=== PATIENT | female | born 1990 | race Two or more races ===

== ENCOUNTER 2025-05-07 10:30 | Inpatient (IN) | payer OTHER ==
[~2025-05-07] VITALS: Ht 162.6 cm; Wt 71.7 kg
[2025-05-11] VITALS (8 sets, daily range): BP systolic 97–119; BP diastolic 57–78
[2025-05-11] MEDS ORDERED: MORPHINE SULFATE 4 MG/ML VIAL IV PRN (10:00)
[2025-05-11] MEDS ORDERED: RINGERS SOLUTION,LACTATED 1,000 ML IV SCH (10:00)
[2025-05-11 10:01] LABS: BASO % 0.1 % (0.1-1.2); EOS # 0.04 (0.04-0.54); EOS % 0.4 % (0.7-7.0); LYMPH # 1.34 (1.18-3.74); LYMPH % 13.0 % (19.3-53.1); MEAN PLATELET VOLUME 9.70 fl (9.4-12.4); MONO # 0.68 (0.24-0.82); MONO % 6.6 % (4.7-12.5); NEUT # 8.23 (1.56-6.13); NEUT % 79.6 % (34.0-71.1); RED CELL DISTRIBUTION WIDTH 14.4 % (11.6-14.4)
[2025-05-11] MEDS ORDERED: PRENATAL TABLE1 EAC1 (10:09)
[2025-05-11] MEDS ORDERED: VANCOMYCIN HCL 1,000 MG VIAL IV NR (10:15)
[2025-05-11 10:38] LABS: INR < 0.93
[2025-05-11 10:54] LABS: ALT/SGPT 17.0 U/L (12-78); AST/SGOT 19.0 U/L (15-37); BILIRUBIN TOTAL 0.32 mg/dL (0.3-1.2); BUN CREA RATIO 24.0 (7.0-25.0); CREATININE SERUM 0.42 mg/dL (0.55-1.02); GFR 173.76; GLOBULINA 3.4 G/DL (2.4-3.5); GLUCOSE FASTING 68.0 mg/dL (65-100); OSMOLALITY SERUM 279.0 MOSM/KG (275-295)
[2025-05-11] MEDS ORDERED: OXYTOCIN 20 UNITS/500ML RL PIGGYBAG IV ONE (12:19)
[2025-05-11] MEDS ORDERED: ERYTHROMYCIN BASE OPHT 1GM EACH TUBE OP ONE (12:20)
[2025-05-11] MEDS ORDERED: LIDOCAINE HCL 1% 10ML VIAL ONE (12:20)
[2025-05-11] MEDS ORDERED: OXYTOCIN 20 UNITS/1000ML RL PIGGYBAG IV ONE (12:20)
[2025-05-11] MEDS ORDERED: CHLORHEXIDINE GLUCONATE 120 ML BOTTLE TOP ONE (12:20)
[2025-05-11] MEDS ORDERED: OXYTOCIN 500 ML IV ONE (12:30)
[2025-05-11] MEDS ORDERED: OXYTOCIN 1,000 ML IV SCH (14:45)
[2025-05-11] MEDS ORDERED: CHLORHEXIDINE GLUCONATE 120 ML BOTTLE TP SCH (14:45)
[2025-05-11] MEDS ORDERED: ERYTHROMYCIN BASE OPHT 1GM EACH TUBE OP SCH (15:00)
[2025-05-11] MEDS ORDERED: VANCOMYCIN HCL 1,000 MG VIAL IV SCH (21:00)
[2025-05-12] VITALS: BP 101/68
[2025-05-12 07:45] LABS: BASO % 0.1 % (0.1-1.2); EOS # 0.07 (0.04-0.54); EOS % 0.6 % (0.7-7.0); LYMPH # 1.40 (1.18-3.74); LYMPH % 11.5 % (19.3-53.1); MEAN PLATELET VOLUME 9.90 fl (9.4-12.4); MONO # 1.08 (0.24-0.82); MONO % 8.9 % (4.7-12.5); NEUT # 9.56 (1.56-6.13); NEUT % 78.6 % (34.0-71.1); RED CELL DISTRIBUTION WIDTH 14.2 % (11.6-14.4)
[2025-05-12 08:00] VITALS: BP 92/61
[2025-05-12 16:00] VITALS: BP 96/61
[2025-05-13] VITALS: BP 95/60
[2025-05-13 08:26] VITALS: BP 100/63
== END 2025-05-13 13:13 | disposition home or self-care (01) | DRG 807 ==
LOC: LDR 05-11 09:33 → OB/GYN 05-11 14:53
PROVIDERS: Obstetrics & Gynecology; ADMIT Obstetrics & Gynecology; ATTEND Obstetrics & Gynecology
PROC: 10E0XZZ Delivery of Products of Conception, External Approach (ICD-10-PCS; principal; 2025-05-11)
PROC: 4A1HXCZ Monitoring of Products of Conception, Cardiac Rate, External Approach (ICD-10-PCS; 2025-05-11)
DX: O80 Encounter for full-term uncomplicated delivery (principal); Z37.0 Single live birth; Z3A.38 38 weeks gestation of pregnancy